=== PATIENT | male | born 1975 | race Caucasian/White ===

== ENCOUNTER 2023-12-15 13:22 | Emergency (ER) | payer OTHER, SELFPAY ==
[2023-12-15 13:40] VITALS: BP 153/101; PULSE 77; RESP 20; O2SAT 97
--- NOTE | 2023-12-15 14:11 | ED.DENTAL ---
HPI - Dental/Oral General Chief complaint: Dental/Oral Stated complaint: Toothache History of Present Illness HPI Narrative: PATIENT PRESENTS WITH LEFT LOWER BACK MOLAR TOOTH PAIN. PATIENT STATES HE GOES TO THE [facility] [employer] BUT IS UNABLE TO GET AN APPOINTMENT AT THIS TIME. PATIENT DENIES ANY TROUBLE SWALLOWING AND NO DROOLING. Related Data Allergies Allergy/AdvReac Type Severity Reaction Status Date / Time No Known Allergies Allergy Verified 12/15/23 14:05 Review of Systems Review of Systems: CONSTITUTIONAL: DENIES FEVER, CHILLS, OR SWEATS. EYES: DENIES VISUAL CHANGES, REDNESS, OR DISCHARGE. ENT: DENIES RHINORRHEA, CONGESTION, SORE THROAT, OR OTALGIA. NO FEVER. NO JAW SWELLING. NO NECK SWELLING. NO LIMITATION WITH SPEAKING OR SWALLOWING. HAS A HISTORY OF DENTAL CARIES. HAS NOT SEEN A DENTIST RECENTLY. CARDIOVASCULAR: DENIES CHEST PAIN, PALPITATIONS, OR EDEMA. RESPIRATORY: DENIES COUGH OR DYSPNEA. GASTROINTESTINAL: DENIES ABDOMINAL PAIN, NAUSEA, VOMITING, OR DIARRHEA. GENITOURINARY: DENIES DYSURIA OR HEMATURIA. SKIN: DENIES RASH OR ITCHING. MUSCULOSKELETAL: DENIES BACK PAIN, JOINT PAIN, OR MYALGIA. NEUROLOGIC: DENIES HEADACHE, NUMBNESS, OR WEAKNESS. PSYCHIATRIC: DENIES ANXIETY OR DEPRESSION. PMFSH Comments AT TIME OF SIGNATURE, AGREE WITH NURSING PAST MEDICAL, SURGICAL, SOCIAL AND FAMILY HISTORY. THERE IS NO RELEVANT FAMILY HISTORY PERTINENT TO THE PRESENTING COMPLAINT Exam Narrative: GENERAL: WELL-APPEARING, WELL-NOURISHED, AND IN NO ACUTE DISTRESS. HEAD: NORMOCEPHALIC, ATRAUMATIC. EYES: PERRLA AND EOMI. ENT: NARES CLEAR, NO RHINORRHEA OR EPISTAXIS. MUCOUS MEMBRANES MOIST. NO GUILLE APICAL SWELLING, TOOTH TENDER TO PALPATION. NO FACIAL SWELLING. NO TRISMUS. ABLE TO OPEN MOUTH FULLY. NO NECK SWELLING OR ERICA'S ANGINA. NO ABSCESS TO BE DRAINED. NO DROOLING, TRISMUS, FACIAL ASYMMETRY OR SIGNIFICANT NECK SWELLING TOOTH 17. NECK: SUPPLE. CHEST: CLEAR TO AUSCULTATION. NO RESPIRATORY DISTRESS. HEART: REGULAR RATE AND RHYTHM. NO MURMUR HEARD. NORMAL PERIPHERAL PULSES. ABDOMEN: SOFT, NONTENDER, NONDISTENDED, NORMAL ACTIVE BOWEL SOUNDS. EXTREMITIES: NORMAL RANGE OF MOTION. NO EDEMA. SKIN: WARM, DRY, NO RASH. NEURO: NO FOCAL DEFICITS. ALERT AND ORIENTED X3. BEN COMA SCALE EYE OPENING: SPONTANEOUS 4 BEN COMA SCALE MOTOR: OBEYS COMMANDS 6 BEN COMA SCALE VERBAL: ORIENTED 5 BEN COMA SCALE TOTAL 15 Course Course Level of Care: Express Care Visit Vital Signs Vital signs: Vital Signs Pulse Rate 77 12/15/23 13:40 Respiratory Rate 20 12/15/23 13:40 Blood Pressure 153/101 H 12/15/23 13:40 Pulse Oximetry 97 12/15/23 13:40 Oxygen Delivery Room Air 12/15/23 13:40 Pulse Rate 77 12/15/23 13:40 Respiratory Rate 20 12/15/23 13:40 Blood Pressure 153/101 H 12/15/23 13:40 Pulse Oximetry 97 12/15/23 13:40 Oxygen Delivery Room Air 12/15/23 13:40 PLEASE TROY SCHEDULE A FOLLOWUP VISIT WITH YOUR PERSONAL PHYSICIAN FOR FURTHER EVALUATION AND TREATMENT. INCLUDING RECHECK AND DISCUSSION OF YOUR BLOOD PRESSURE. IF YOUR SYMPTOMS PERSIST, CHANGE OR WORSEN SIGNIFICANTLY BEFORE YOU CAN CONTACT YOUR PERSONAL PHYSICIAN THEN PLEASE, WITHOUT DELAY, GO TO THE EMERGENCY DEPARTMENT FOR FURTHER EVALUATION Discharge Plan Discharge Clinical Impression: Toothache, Dental caries, Dental abscess Patient Disposition: Home, Self-Care Condition: Stable Instructions: Antibiotic Form, Dental Abscess (ED), Mouth Care (ED) Additional Instructions: AVOID TEMPERATURE EXTREMES MAY APPLY HEAT OR ICE TO THE FACE GENTLE BRUSHING AND FLOSSING ANTIBIOTIC DIRECTED TYLENOL FOR LESSER PAIN USE IBUPROFEN REGULARLY FOLLOW-UP WITH THE DENTIST SOON POSSIBLE--SEE THE LIST PROVIDED -IF YOU HAVE ANY WORSENING OF SYMPTOMS OR ANY OTHER CONCERNS PLEASE GO TO THE ED IMMEDIATELY. Prescriptions: New penicillin V potassium 500 mg tablet 500 mg PO Q12H 10 Days Qty: 20 0RF lidocaine H
== END 2023-12-15 14:20 | disposition home or self-care (01) ==
PROVIDERS: Emergency Provider Nurse Practitioner Family
DX: K08.89 Other specified disorders of teeth and supporting structures (principal); K02.9 Dental caries, unspecified; K04.7 Periapical abscess without sinus
CPT/HCPCS: 99213; G0463

== ENCOUNTER 2024-07-05 11:05 | Emergency (ER) | payer OTHER, SELFPAY ==
[2024-07-05 11:12] VITALS: BP 150/99; PULSE 66; RESP 20; TEMP 37; O2SAT 98
--- NOTE | 2024-07-05 11:18 | ED.URI ---
HPI - URI/Sore Throat General Chief Complaint: Upper Respiratory Infection Stated Complaint: Cough/Shortness of Breath Time Seen by Provider: 07/05/24 11:18 Source: patient Mode of arrival: ambulatory Limitations: no limitations History of Present Illness HPI Narrative: 48-year-old male presents with complaint of cough, fatigue, body aches for 3 days. Afebrile. Taking [id number] cold and flu medication. No chest pain or shortness of breath. Patient concerned he has COVID. Denies nausea vomiting diarrhea. All systems reviewed and negative except as noted above. Related Data Allergies Allergy/AdvReac Type Severity Reaction Status Date / Time No Known Allergies Allergy Verified 12/15/23 14:05 Review of Systems Review of Systems: CONSTITUTIONAL: Denies fever, chills, or sweats. Reports fatigue. EYES: Denies visual changes, redness, or discharge. ENT: Denies rhinorrhea, congestion, sore throat, or otalgia. CARDIOVASCULAR: Denies chest pain, palpitations, or edema. RESPIRATORY: Reports cough. Denies dyspnea. GASTROINTESTINAL: Denies abdominal pain, nausea, vomiting, or diarrhea. GENITOURINARY: Denies dysuria or hematuria. SKIN: Denies rash or itching. MUSCULOSKELETAL: Denies back pain, joint pain. Reports myalgia. NEUROLOGIC: Denies headache, numbness, or weakness. PSYCHIATRIC: Denies anxiety or depression. All other systems reviewed are negative, except as documented in HPI. PMFSH Comments At time of signature, agree with nursing past medical, surgical, social and family history. There is no relevant family history pertinent to the presenting complaint. Exam Narrative: GENERAL: This is a well-nourished, well-developed patient, patient ill-appearing but in no acute distress. HEAD: normocephalic, atraumatic. EYES: PERRL. Sclera clear/white. Vision is grossly intact. EARS: External ears normal, auditory canals clear and without drainage, TMs normal without perforation. Hearing grossly intact. NOSE: External nose normal with clear nasal drainage, mild erythema to bilateral nares THROAT: Mucous membranes moist, posterior pharynx clear. NECK: Neck supple, non-tender without lymphadenopathy, masses or thyromegaly. CARDIOVASCULAR: Regular rate and rhythm without murmurs, gallops, or rubs. RESPIRATORY: Clear to auscultation. Breath sounds equal bilaterally. No wheezes, rales, or rhonchi. SKIN: warm, Dry, intact with no suspicious lesions or rash, good texture and turgor. NEURO: awake, alert, and oriented to person, place and time. There were no obvious focal neurologic abnormalities. EXTREMITIES: No joint tenderness, effusion, or edema noted. Course Course Level of Care: Express Care Visit Vital Signs Vital signs: Reviewed MDM - URI/Sore Throat MDM Narrative Medical decision making narrative: Positive COVID-19. Discussed results with patient. Lungs clear to auscultation. No respiratory distress. Pulse ox 98% room air. Nontoxic. Recommend treatment of symptoms with btvs-ors-plcmloe medications. Patient is aware of diagnosis, understands and agrees to treatment plan. Anticipatory guidance given. Patient agrees to follow-up as directed and is aware of reasons to seek care at the emergency department. Portions of this record may have been created with voice recognition software Differential Diagnosis Differential diagnosis: Likely upper respiratory infection, sinusitis, viral infection, bronchitis, influenza and other (COVID) Discharge Plan Discharge Clinical Impression: COVID-19 Patient Disposition: Home, Self-Care Condition: Stable Instructions: COVID-19 (Coronavirus Disease 2019) (ED) Additional Instructions: Your COVID test was positive today. COVID is a virus and symptoms may last 10-14 days. Continue to take aies-gqw-onktcik medications to treat her symptoms. May take ibuprofen every 6-8 hours as needed for pain and fever. Drink at least 64 oz of water a day. Follow-up with your
== END 2024-07-05 11:36 | disposition home or self-care (01) ==
PROVIDERS: Emergency Provider Nurse Practitioner Family
DX: U07.1 COVID-19 (principal)
CPT/HCPCS: 87426; 99212; G0463

== ENCOUNTER 2024-12-16 14:33 | Emergency (ER) | payer OTHER, SELFPAY ==
[2024-12-16 14:40] VITALS: BP 148/92; PULSE 73; RESP 20; TEMP 36.6; O2SAT 98
--- NOTE | 2024-12-16 14:58 | ED.URI ---
HPI - URI/Sore Throat General Chief Complaint: Upper Respiratory Infection Stated Complaint: cough/congestion Time Seen by Provider: 12/16/24 14:58 Source: patient Mode of arrival: ambulatory Limitations: no limitations History of Present Illness HPI Narrative: 49-year-old male presented for complaint of cough and chest congestion for 4 days. Not taking anything for symptoms. Denies shortness of breath, wheezing, nausea, vomiting, fevers or lethargy. Related Data Allergies Allergy/AdvReac Type Severity Reaction Status Date / Time No Known Allergies Allergy Verified 12/16/24 14:47 Review of Systems Review of Systems: CONSTITUTIONAL: Denies body aches, fever, chills, or sweats. EYES: Denies visual changes, redness, or discharge. ENT: reports rhinorrhea, congestion, Denies sore throat, or otalgia. CARDIOVASCULAR: Denies chest pain, palpitations, or edema. RESPIRATORY: Reports cough, sob, wheezing. GASTROINTESTINAL: Denies abdominal pain, nausea, vomiting, or diarrhea. SKIN: Denies rash, itching, or wounds. MUSCULOSKELETAL: Denies back pain, joint pain, or myalgia. NEUROLOGIC: Denies headache All systems reviewed & are unremarkable except as noted in HPI and below PMFSH Comments At time of signature, I have reviewed and agree with nursing past medical, surgical, social and family history unless otherwise noted. Please see nursing chart for further information. There is no relevant family history pertinent to the presenting complaint Exam Narrative: GENERAL: Well-appearing, in no acute distress. EYES: EOMI. No redness or drainage. Conjunctivae normal. ENT: Mucous membranes pink and moist. rhinorrhea. TMs normal bilaterally. Throat normal. Uvula midline. NECK: Normal AROM. Supple. CHEST: No respiratory distress. Wheezing to bases HEART: Regular rate and rhythm. No murmur appreciated. ABDOMEN: Soft, nontender, nondistended, normal active bowel sounds. SKIN: Warm, dry, no rash. Capillary refill normal. Normal skin turgor. NEURO: Alert and oriented x3. Gait steady. PSYCH: Normal affect. Course Course Emergency Course: Patient is aware of diagnosis, understands and agrees to treatment plan. Anticipatory guidance given. Patient agrees to follow-up as directed and is aware of reasons to seek care at the emergency department. Portions of this record may have been created with voice recognition software Level of Care: Express Care Visit Vital Signs Vital signs: Vital Signs Temperature 97.8 F 12/16/24 14:40 Pulse Rate 73 12/16/24 14:40 Respiratory Rate 20 12/16/24 14:40 Blood Pressure 148/92 H 12/16/24 14:40 Pulse Oximetry 98 12/16/24 14:40 Oxygen Delivery Room Air 12/16/24 14:40 Temperature 97.8 F 12/16/24 14:40 Pulse Rate 73 12/16/24 14:40 Respiratory Rate 20 12/16/24 14:40 Blood Pressure 148/92 H 12/16/24 14:40 Pulse Oximetry 98 12/16/24 14:40 Oxygen Delivery Room Air 12/16/24 14:40 MDM - URI/Sore Throat MDM Narrative Medical decision making narrative: Discussed physical exam findings. Advised supportive measures and signs/symptoms to go to the ER. Pt is appropriate for outpt treatment and f/u. Differential Diagnosis Differential diagnosis: Likely upper respiratory infection, sinusitis, viral infection, bronchitis and other (pneumonia) Discharge Plan Discharge Clinical Impression: Bronchitis Patient Disposition: Home, Self-Care Condition: Stable Instructions: Antibiotic Form, Acute Bronchitis (ED) Additional Instructions: Acute bronchitis can be contagious because it is usually caused by infection with a virus or bacteria. It is usually for a few days but you can be contagious for up to one week. Avoid crowds until you do not have a fever and symptoms are improved Take medication as directed Recommend Flonase spray and Zyrtec (or Claritin/Gail) over the counter Cough syrup may cause drowsiness; avoid driving or take it at night time. Tylenol 1000mg every 8 hours as needed for pain Symptomatic treatment includes: rest, fluids, and increase humidity of the air at home. Follow up with your primary care provider as needed Go to the ER for worsening symptoms or concerns Patient Language: Setswana Prescriptions: New methylprednisolone [Medrol (Eliazar)] 4 mg tablets,dose pack See Rx Instructions .ROUTE .COMPLEX Qty: 21 0RF Rx Instructions: orally per package directions albuterol sulfate 90 mcg/actuation HFA aerosol inhaler 2 inh inhalation QID PRN (Reason: shortness of breath or wheezing) Qty: 8.5 0RF Follow-up/Referrals: PHYSICIAN,CHURCH MUSICIAN [Primary Care Provider] - Stand Alone Forms: Work/School Release IP Time of Disposition: 15:10
--- OUTSIDE RECORDS SUMMARY | 2024-12-16 15:09 | XMS_ITS | Clinical Summary ---
Author Organization [facility] Address [address] [place] [address] Phone Care Team Providers Care Costume Mistress Name Role Phone Provider, None Primary Care Provider Unavailabl e Allergies No known active allergies Medications HYDROcodone-monica taminophen (NORCO) 5-325 MG TabletIndicatio ns:Pain, dental Take 1-2 Tablets by mouth every 4 hours as needed for Moderate or more severe pain. 20 Tablet 11/19/2021 Active Social History Tobacco Use Types Packs/Day Years Used Date Smoking Tobacco: Never Smokeless Tobacco: Never Alcohol Use Standard Drinks/Week Comments Yes 0 (1 standard drink = 0.6 oz pur e alcohol) occasional Sex and Gender Information Value Date Recorded Sex Assigned at Not on file Legal Sex Male 12:21 AM CDT Gender Identity Not on file Sexual Orientation Not on file Last Filed Vital Signs Vital Sign Reading Time Taken Comments Blood Pressure 151/94 11/19/2021 1:23 AM RESEARCH STATISTICIAN Pulse 81 11/19/2021 1:23 AM RESEARCH STATISTICIAN Temperature 37.1 ??C (98.8 ??F) 11/19/2021 1:23 AM CS T Respiratory Rate 18 11/19/2021 1:23 AM RESEARCH STATISTICIAN Oxygen Saturation 96% 11/19/2021 1:23 AM RESEARCH STATISTICIAN Inhaled Oxygen Concentration - - Weight 131.5 kg (290 lb) 11/19/2021 1:23 AM RESEARCH STATISTICIAN Height 181.6 cm (5' 11.5 ) 11/19/2021 1:23 AM CS T Body Mass Index 39.88 11/19/2021 1:23 AM RESEARCH STATISTICIAN Plan of Treatment Not on file Insurance [employer] Care Teams Costume Mistress Relationship Specialty Start Date End Date Provider, None [place] PCP - General 11/19/21
== END 2024-12-16 15:16 | disposition home or self-care (01) ==
PROVIDERS: Emergency Provider Nurse Practitioner Family
DX: J40 Bronchitis, not specified as acute or chronic (principal)
CPT/HCPCS: 99213; G0463